=== PATIENT | male | born 1950 | race Caucasian/White ===

== ENCOUNTER → 2017-05-03 | Outpatient (CLI) | payer OTHER ==
[~2017-05-03] MED LIST: ALBMDV INH; IBU200 PO; MULT-977 PO
== END ==
LOC: RESP 02:42
PROVIDERS: ATTEND Family Medicine
DX: Z00.00 Encounter for general adult medical examination without abnormal findings (principal)
CPT/HCPCS: 94060

== ENCOUNTER → 2017-05-31 | Outpatient (CLI) | payer OTHER ==
--- NOTE | 2017-05-31 12:57 | RADIOLOGY IMAGING REPORT ---
FACILITY: [facility] - [place] PATIENT NAME: Edward Purvis : 1950 MR: [id number] V: [id number] EXAM DATE: ORDERING PHYSICIAN: JENNIFER MONTANA TECHNOLOGIST: Location: [facility] - [place] Patient: Edward Purvis : 1950 Visit/Account:[id number] Date of Sevice: 05/31/2017 CHEST PA AND LAT Indication: Work screening exam Comparison: None. Findings: Lungs: Clear. Mediastinum/pulmonary vasculature: Heart size and pulmonary vasculature are normal. Bones/soft tissues: Normal. IMPRESSION: Clear lungs. Report Dictated By: Musa Nguyen at 05/31/2017 12:52 PM Report E-Signed By: Musa Nguyen at 05/31/2017 12:53 PM WSN:[id number]
== END ==
LOC: RAD 12:07
PROVIDERS: ATTEND Family Medicine
DX: Z02.89 Encounter for other administrative examinations (principal)
CPT/HCPCS: 71046

== ENCOUNTER → 2018-05-03 | Outpatient (CLI) | payer OTHER ==
--- NOTE | 2018-05-03 15:39 | RADIOLOGY IMAGING REPORT ---
FACILITY: [facility] - [place] PATIENT NAME: Edward Purvis : 1950 MR: [id number] V: [id number] EXAM DATE: ORDERING PHYSICIAN: JENNIFER MONTANA TECHNOLOGIST: Location: [facility] - [place] Patient: Edward Purvis : 1950 Visit/Account:[id number] Date of Sevice: 05/03/2018 Chest with lateral, two views. HISTORY: Work physical. COMPARISON: 05/31/2017. The heart and mediastinum are unremarkable. Pulmonary vessels are unremarkable. The lungs are clear . The pleural surfaces are unremarkable. No pneumothorax. No acute bony abnormality. IMPRESSION: No evidence of acute cardiopulmonary disease. Report Dictated By: Jaiden Talavera MD at 05/03/2018 3:32 PM Report E-Signed By: Jaiden Talavera MD at 05/03/2018 3:34 PM WSN:[id number]
== END ==
LOC: RAD 14:41
PROVIDERS: ATTEND Family Medicine
DX: Z02.89 Encounter for other administrative examinations (principal)
CPT/HCPCS: 71046

== ENCOUNTER → 2018-06-11 | Outpatient (CLI) | payer OTHER ==
--- NOTE | 2018-06-11 16:02 | RADIOLOGY IMAGING REPORT ---
[place] [facility] [place] NAME: Edward Purvis : 1950 MR: [id number] V: [id number] EXAM DATE: ORDERING PHYSICIAN: WILLY HEATH TECHNOLOGIST: [facility] Patient: Edward Purvis : 1950 Visit/Account:[id number] Date of Sevice: 06/11/2018 FACIAL BONES MIN 3 VIEW HISTORY: Facial trauma Additional history: None COMPARISON: None. FINDINGS: No air-fluid levels are seen in the paranasal sinuses and no displaced facial fractures are identifie d. IMPRESSION: Negative exam. I would caution that radiographic appearance sensitive for nondisplaced facial fractu res and if there is continued clinical suspicion recommend CT scan Report Dictated By: Jeffrey Ibrahim MD at 06/11/2018 3:55 PM Report E-Signed By: Jeffrey Ibrahim MD at 06/11/2018 3:57 PM WSN:[email or web address]
== END ==
LOC: RAD 13:21
PROVIDERS: ATTEND Family Medicine
DX: S00.33XA Contusion of nose, initial encounter (principal)
CPT/HCPCS: 70150